=== PATIENT | female | born 1965 | race Caucasian/White ===

== ENCOUNTER 2019-03-21 08:36 | Day surgery (SDC) | payer BC ==
[~2019-03-21 08:36] MED LIST: Lactated Ringers 1,000 ML IV SCH; Midazolam 1 MG/ML 2 ML SDV ONE; Propofol 200 MG/20 ML SDV ONE
--- NOTE | 2019-03-21 09:16 | PCM.PREANE ---
Preanesthetic Assessment - Anesthesia/Transfusion/Family Hx Anesthesia History: Prior Anesthesia Without Reaction Family History of Anesthesia Reaction: No Transfusion History: No Prior Transfusion(s) - Review of Systems General: No Symptoms Pulmonary: No Symptoms Cardiovascular: No Symptoms Gastrointestinal: No Symptoms Neurological: No Symptoms Other: Reports: None - Physical Assessment NPO Status Date: 03/20/19 Vital Signs: Last Vital Signs Temp 96.6 F 03/21/19 09:12 Pulse 59 L 03/21/19 09:12 Resp 16 03/21/19 09:12 BP 135/80 03/21/19 09:12 Pulse Ox 100 03/21/19 09:12 Height: 5 ft 4 in Weight: 77.111 kg ASA Class: 2 Mental Status: Alert & Oriented x3 Airway Class: Mallampati = 2 Dentition: Reports: Normal Dentition ROM/Head Extension: Full Lungs: Clear to Auscultation, Normal Respiratory Effort Cardiovascular: Regular Rate, Regular Rhythm - Allergies Allergies/Adverse Reactions: Allergies Allergy/AdvReac Type Severity Reaction Status Date / Time No Known Allergies Allergy Verified 03/21/19 09:12 - Blood Blood Available: No - Anesthesia Plan Pre-Op Medication Ordered: None - Acknowledgements Anesthesia Type Planned: General Anesthesia Pt an Appropriate Candidate for the Planned Anesthesia: Yes Alternatives and Risks of Anesthesia Discussed w Pt/Guardian: Yes Pt/Guardian Understands and Agrees with Anesthesia Plan: Yes Additional Comments: PMH: hx breast cancer, s/p mastectomies PLAN: tiva PreAnesthesia Questionnaire HEENT History: Reports: Other (See Below) Other HEENT History: wears glasses, contacts Gastrointestinal History: Reports: GERD, Other (See Below) Other Gastrointestinal History: takes OTC medications for GERD Oncologic (Cancer) History: Reports: Breast Other Oncologic History: bilateral breast cancer - Past Surgical History Head Surgeries/Procedures: Reports: None HEENT Surgical History: Reports: Tonsillectomy GI Surgical History: Reports: Cholecystectomy Female Surgical History: Reports: Breast Implant, Mastectomy Oncologic Surgical History: Reports: Mastectomy Other Oncologic Surgeries/Procedures: bilateral - SUBSTANCE USE Smoking Status *Q: Former Smoker Tobacco Use Within Last Twelve Months: No Recreational Drug Use History: No - HOME MEDS Home Medications: Home Meds Doterra Vitality Multivitamin 1 pack PO DAILY 03/18/19 [History] Ibuprofen 2 tab PO Q4H PRN 03/18/19 [History] Tamoxifen Citrate 20 mg PO DAILY 03/18/19 [History] Valerian Root 500 mg PO BEDTIME PRN 03/18/19 [History] - CURRENT (IN HOUSE) MEDS Current Meds: Current Medications Lactated Ringer's (Ringers, Lactated) 1,000 mls @ 125 mls/hr IV ASDIRECTED BARRIE Last Admin: 03/21/19 09:12 Dose: 125 mls/hr Discontinued Medications Midazolam HCl (Versed 1 Mg/Ml) Confirm Administered Dose 2 mg .ROUTE .STK-MED ONE Stop: 03/21/19 07:54 Propofol (Diprivan 20 Ml) Confirm Administered Dose 400 mg .ROUTE .STK-MED ONE Stop: 03/21/19 07:54
[2019-03-21] MEDS ORDERED: Lactated Ringers 1,000 ML IV SCH (10:45)
--- NOTE | 2019-03-21 10:47 | PCM.OPNOTE ---
- General Post-Op/Procedure Note Date of Surgery/Procedure: 03/21/19 Operative Procedure(s): Colonoscopy Pre Op Diagnosis: Desire for colorectal cancer screening. Personal history of breast cancer. Post-Op Diagnosis: sigmoid diverticulosis Anesthesia Technique: MAC (ASA II) Primary Surgeon: Rickie Worrell Condition: Good Free Text/Narrative:: DICTATION 499695 CPT CODE 79224
--- NOTE | 2019-03-21 10:53 | PCM.POSTAN ---
POST ANESTHESIA ASSESSMENT - MENTAL STATUS Mental Status: Alert, Oriented - VITAL SIGNS Vital Signs: Last Vital Signs Temp 35.9 C 03/21/19 09:12 Pulse 63 03/21/19 10:49 Resp 16 03/21/19 10:49 BP 137/74 03/21/19 10:49 Pulse Ox 98 03/21/19 10:49 - RESPIRATORY Respiratory Status: Respiratory Rate WNL, Airway Patent, O2 Saturation Stable - CARDIOVASCULAR CV Status: Pulse Rate WNL, Blood Pressure Stable - GASTROINTESTINAL GI Status: No Symptoms - POST OP HYDRATION Hydration Status: Adequate & Stable - OBSERVATIONS Free Text/Narrative:: Patient comfortable and without any noted anesthesia complications.
--- NOTE | 2019-03-21 12:43 | PCM48HPAN ---
Post Anesthesia Note - EVALUATION WITHIN 48HRS OF ANESTHETIC Vital Signs in Normal Range: Yes Patient Participated in Evaluation: Yes Respiratory Function Stable: Yes Airway Patent: Yes Cardiovascular Function Stable: Yes Hydration Status Stable: Yes Pain Control Satisfactory: Yes Nausea and Vomiting Control Satisfactory: Yes Mental Status Recovered: Yes Vital Signs: Last Vital Signs Temp 96.6 F 03/21/19 09:12 Pulse 63 03/21/19 10:49 Resp 16 03/21/19 10:49 BP 137/74 03/21/19 10:49 Pulse Ox 98 03/21/19 10:49
--- NOTE | 2019-03-21 13:50 | OR ---
SURGEON: Rickie Worrell M.D. DATE OF PROCEDURE: 03/21/2019 OPERATION PERFORMED: Colonoscopy. ANESTHESIA: MAC. ASA CLASSIFICATION: II. PREOPERATIVE DIAGNOSIS: Desire for colorectal cancer screening. POSTOPERATIVE DIAGNOSIS: Sigmoid diverticulosis. DESCRIPTION OF PROCEDURE: The patient was taken to the endoscopy room and positioned on the endoscopy table in the left lateral decubitus position. Time-out was called for appropriate identification of the patient and procedure. Monitored anesthesia care was provided. The colonoscope was inserted into the rectum and advanced with minimal difficulty to the cecum. The cecum was identified by internal landmarks and external pressure. The colonoscope was retroflexed to visualize the ascending colon from below, then straightened and slowly withdrawn. The cecum, ascending colon, hepatic flexure, transverse colon, splenic flexure, and descending colon showed no tumors, polyps, diverticula, or angiodysplastic changes. Sigmoid colon demonstrates moderate diverticular disease. No stricture or spasm was noted. No acute inflammatory changes were noted. No polyps were encountered. The colonoscope was withdrawn to the rectum and retroflexed to visualize the anal orifice from above. No tumors, polyps, or acute hemorrhoidal changes were noted. The colonoscope was then straightened, the rectum aspirated, and the colonoscope removed. The patient tolerated the procedure well and was taken to recovery room in stable condition. DARIELA FIERRO /[id number]
== END 2019-03-21 11:30 | disposition home or self-care (01) ==
LOC: MW.SDS 08:36
PROVIDERS: ATTEND Surgery
DX: Z12.11 Encounter for screening for malignant neoplasm of colon (principal); K57.30 Diverticulosis of large intestine without perforation or abscess without bleeding; K21.9 Gastro-esophageal reflux disease without esophagitis; Z79.899 Other long term (current) drug therapy; Z87.891 Personal history of nicotine dependence
CPT/HCPCS: 36415; 45378; 84703; J2250; J2704; J7120; 00812

== ENCOUNTER 2019-03-23 09:46 | Emergency (ER) | payer BC ==
--- NOTE | 2019-03-23 10:15 | EDM.PDOC ---
ED HPI GENERAL MEDICAL PROBLEM - General Chief Complaint: Skin Complaint Stated Complaint: BLACK LINE GOING UP LEG Time Seen by Provider: 03/23/19 10:03 Source of Information: Reports: Patient History Limitations: Reports: No Limitations - History of Present Illness INITIAL COMMENTS - FREE TEXT/NARRATIVE: HISTORY AND PHYSICAL: History of present illness: Patient is a 53 year old female who presents to the ED today with a linear bruising / black area on the back of her right calf. Patient states it initially was just a small area a few days ago and is slowly worked its way up and is now up into the bottom of the back of her thigh. Patient states the area doesn't like a bruise and is only mildly uncomfortable if she presses on it. Patient states she has a history of breast cancer s/p bilateral mastectomy. Patient denies any other symptoms or concerns. Patient denies fever, chills, chest pain, shortness of breath, or cough. Denies headache, neck stiff ness, change in vision, syncope, or near syncope. Denies nausea, vomiting, abdominal pain, diarrhea, constipation, or dysuria. Has not noted any blood in urine or stool. Patient has been eating and drinking appropriately. Review of systems: As per history of present illness and below otherwise all systems reviewed and negative. Past medical history: As per history of present illness and as reviewed below otherwise noncontributory. Surgical history: As per history of present illness and as reviewed below otherwise noncontributory. Social history: See social history for further information Family history: As per history of present illness and as reviewed below otherwise noncontributory. Physical exam: General: Patient is alert, oriented, and in no acute distress. Patient sitting comfortably on exam table. HEENT: Atraumatic, normocephalic, pupils equal and reactive bilaterally, negative for conjunctival pallor or scleral icterus, mucous membranes moist, TMs normal bilaterally, throat clear, neck supple, nontender, trachea midline. No drooling or trismus noted. No meningeal signs. No hot potato voice noted. Lungs: Clear to auscultation, breath sounds equal bilaterally, chest nontender. Heart: S1S2, regular rate and rhythm without overt murmur Abdomen: Soft, nondistended, nontender. Negative for masses or hepatosplenomegaly. Negative for costovertebral tenderness. Pelvis: Stable nontender. Genitourinary: Deferred. Rectal: Deferred. Skin: Intact, warm, dry. No lesions or rashes noted. Extremities: Atraumatic, negative for cords or calf pain. Neurovascular unremarkable. There is a purple/bruising linear-jagged line in the distribution of a venous flow starting from the patient's distal posterior calf that and at the distal posterior thigh that mild pain with palpation. DP/PT are grossly intact with capillary refill less than 2 seconds of the right lower extremity. No obvious edema of the right lower extremity, and negative for erythema. Neuro: Awake, alert, oriented. Cranial nerves II through XII unremarkable. Cerebellum unremarkable. Motor and sensory unremarkable throughout. Exam nonfocal. Notes: Dr. Polk directly involved in patient care. Discussed the importance for follow-up with the primary care provider. Voices understanding and is agreeable to plan of care. Denies any further questions or concerns at this time. Diagnostics: CBC, CMP, UA, Lower extremity US doppler Therapeutics: None Prescription: None Impression: Bruising of lower extremity Plan: 1. You can alternate ibuprofen and Tylenol as directed for pain and discomfort. 2. Follow-up with the primary care provider as discussed. Return to the ED as needed and as discussed. Definitive disposition and diagnosis as appropriate pending reevaluation and review of above. Right Leg Pain Score (Numeric/FACES): 1 - Related Data Allergies Allergy/AdvReac Type Severity Reaction Status Date / Time No Known Allergies Allergy Verified 03/23/19 09:50 Home Meds: Home Meds Doterra Vitality Multivitamin 1 pack PO DAILY 03/18/19 [History] Ibuprofen 2 tab PO Q4H PRN 03/18/19 [History] Tamoxifen Citrate 20 mg PO DAILY 03/18/19 [History] Valerian Root 500 mg PO BEDTIME PRN 03/18/19 [History] Past Medical History HEENT History: Reports: Other (See Below) Other HEENT History: wears glasses, contacts Gastrointestinal History: Reports: GERD, Other (See Below) Other Gastrointestinal History: takes OTC medications for GERD Oncologic (Cancer) History: Reports: Breast Other Oncologic History: bilateral breast cancer - Infectious Disease History Infectious Disease History: Reports: Chicken Pox - Past Surgical History Head Surgeries/Procedures: Reports: None HEENT Surgical History: Reports: Tonsillectomy GI Surgical History: Reports: Cholecystectomy Female Surgical History: Reports: Breast Implant, Mastectomy Oncologic Surgical History: Reports: Mastectomy Other Oncologic Surgeries/Procedures: bilateral Social & Family History - Family History Family Medical History: Noncontributory - Tobacco Use Smoking Status *Q: Never Smoker Second Hand Smoke Exposure: No - Caffeine Use Caffeine Use: Reports: Coffee, Tea - Recreational Drug Use Recreational Drug Use: No ED ROS GENERAL - Review of Systems Review Of Systems: ROS reveals no pertinent complaints other than HPI. ED EXAM, SKIN/RASH Exam: See Below (See dictation) Course - Vital Signs Last Recorded V/S: Last Vital Signs Temp 35.9 C 03/23/19 09:51 Pulse 80 03/23/19 09:51 Resp 16 03/23/19 09:51 BP 176/90 H 03/23/19 09:51 Pulse Ox 99 03/23/19 09:51 - Orders/Labs/Meds Labs: Laboratory Tests 03/23/19 03/23/19 03/23/19 Range/Units 10:15 10:15 10:15 WBC 6.58 (4.0-11.0) K/uL RBC 4.62 (4.30-5.90) M/uL Hgb 14.3 (12.0-16.0) g/dL Hct 41.8 (36.0-46.0) % MCV 90.5 (80.0-98.0) fL MCH 31.0 (27.0-32.0) pg MCHC 34.2 (31.0-37.0) g/dL RDW Std Deviation 41.4 (28.0-62.0) fl RDW Coeff of Devin 13 (11.0-15.0) % Plt Count 269 (150-400) K/uL MPV 9.90 (7.40-12.00) fL Neut % (Auto) 60.1 (48.0-80.0) % Lymph % (Auto) 28.3 (16.0-40.0) % Barbour % (Auto) 9.7 (0.0-15.0) % Eos % (Auto) 1.4 (0.0-7.0) % Baso % (Auto) 0.5 (0.0-1.5) % Neut # (Auto) 4.0 (1.4-5.7) K/uL Lymph # (Auto) 1.9 (0.6-2.4) K/uL Barbour # (Auto) 0.6 (0.0-0.8) K/uL Eos # (Auto) 0.1 (0.0-0.7) K/uL Baso # (Auto) 0.0 (0.0-0.1) K/uL Nucleated RBC % 0.0 /100WBC Nucleated RBCs # 0 K/uL INR 1.04 Sodium (136-145) mmol/L Potassium (3.5-5.1) mmol/L Chloride (98-107) mmol/L Carbon Dioxide (21.0-32.0) mmol/L BUN (7.0-18.0) mg/dL Creatinine (0.6-1.0) mg/dL Est Cr Clr Drug Dosing mL/min Estimated GFR (MDRD) ml/min Glucose (74-106) mg/dL Calcium (8.5-10.1) mg/dL Total Bilirubin (0.2-1.0) mg/dL AST (15-37) IU/L ALT (14-63) IU/L Alkaline Phosphatase (46-116) U/L Total Protein (6.4-8.2) g/dL Albumin (3.4-5.0) g/dL Globulin (2.6-4.0) g/dL Albumin/Globulin Ratio (0.9-1.6) Urine Color YELLOW Urine Appearance CLEAR Urine pH 6.5 (5.0-8.0) Ur Specific Stuart <= 1.005 (1.001-1.035) Urine Protein NEGATIVE (NEGATIVE) mg/dL Urine Glucose (UA) NEGATIVE (NEGATIVE) mg/dL Urine Ketones NEGATIVE (NEGATIVE) mg/dL Urine Occult Blood NEGATIVE (NEGATIVE) Urine Nitrite NEGATIVE (NEGATIVE) Urine Bilirubin NEGATIVE (NEGATIVE) Urine Urobilinogen 0.2 (<2.0) EU/dL Ur Leukocyte Esterase NEGATIVE (NEGATIVE) 03/23/19 Range/Units 10:15 WBC (4.0-11.0) K/uL RBC (4.30-5.90) M/uL Hgb (12.0-16.0) g/dL Hct (36.0-46.0) % MCV (80.0-98.0) fL MCH (27.0-32.0) pg MCHC (31.0-37.0) g/dL RDW Std Deviation (28.0-62.0) fl RDW Coeff of Devin (11.0-15.0) % Plt Count (150-400) K/uL MPV (7.40-12.00) fL Neut % (Auto) (48.0-80.0) % Lymph % (Auto) (16.0-40.0) % Barbour % (Auto) (0.0-15.0) % Eos % (Auto) (0.0-7.0) % Baso % (Auto) (0.0-1.5) % Neut # (Auto) (1.4-5.7) K/uL Lymph # (Auto) (0.6-2.4) K/uL Barbour # (Auto) (0.0-0.8) K/uL Eos # (Auto) (0.0-0.7) K/uL Baso # (Auto) (0.0-0.1) K/uL Nucleated RBC % /100WBC Nucleated RBCs # K/uL INR Sodium 143 (136-145) mmol/L Potassium 4.5 (3.5-5.1) mmol/L Chloride 106 (98-107) mmol/L Carbon Dioxide 26.4 (21.0-32.0) mmol/L BUN 7 (7.0-18.0) mg/dL Creatinine 0.8 (0.6-1.0) mg/dL Est Cr Clr Drug Dosing 71.84 mL/min Estimated GFR (MDRD) > 60.0 ml/min Glucose 103 (74-106) mg/dL Calcium 9.1 (8.5-10.1) mg/dL Total Bilirubin 0.4 (0.2-1.0) mg/dL AST 13 L (15-37) IU/L ALT 21 (14-63) IU/L Alkaline Phosphatase 60 (46-116) U/L Total Protein 6.7 (6.4-8.2) g/dL Albumin 3.7 (3.4-5.0) g/dL Globulin 3.0 (2.6-4.0) g/dL Albumin/Globulin Ratio 1.2 (0.9-1.6) Urine Color Urine Appearance Urine pH (5.0-8.0) Ur Specific Stuart (1.001-1.035) Urine Protein (NEGATIVE) mg/dL Urine Glucose (UA) (NEGATIVE) mg/dL Urine Ketones (NEGATIVE) mg/dL Urine Occult Blood (NEGATIVE) Urine Nitrite (NEGATIVE) Urine Bilirubin (NEGATIVE) Urine Urobilinogen (<2.0) EU/dL Ur Leukocyte Esterase (NEGATIVE) Departure - Departure Time of Disposition: 12:02 Disposition: Home, Self-Care 01 Clinical Impression: Superficial bruising of lower leg Qualifiers: Encounter type: initial encounter Laterality: right Qualified Code(s): S80.11XA - Contusion of right lower leg, initial encounter - Discharge Information Instructions: Contusion, [id number] Referrals: PCP,Unknown [Primary Care Provider] - Forms: ED Department Discharge Additional Instructions: The following information is given to patients seen in the emergency department who are being discharged to home. This information is to outline your options for follow-up care. We provide all patients seen in our emergency department with a follow-up referral. The need for follow-up, as well as the timing and circumstances, are variable depending upon the specifics of your emergency department visit. If you don't have a primary care physician on staff, we will provide you with a referral. We always advise you to contact your personal physician following an emergency department visit to inform them of the circumstance of the visit and for follow-up with them and/or the need for any referrals to a consulting specialist. The emergency department will also refer you to a specialist when appropriate. This referral assures that you have the opportunity for follow-up care with a specialist. All of these measure are taken in an effort to provide you with optimal care, which includes your follow-up. Under all circumstances we always encourage you to contact your private physician who remains a resource for coordinating your care. When calling for follow-up care, please make the office aware that this follow-up is from your recent emergency room visit. If for any reason you are refused follow-up, please contact the [facility] Emergency Department at and asked to speak to the emergency department charge nurse. [facility] [address] [place] [id number] [facility] [address] [place] [id number] 1. You can alternate ibuprofen and Tylenol as directed for pain and discomfort. 2. Follow-up with the primary care provider as discussed. Return to the ED as needed and as discussed.
[2019-03-23 10:41] LABS: CHLORIDE,CL 106 mmol/L (98-107); SODIUM,NA 143 mmol/L (136-145)
--- NOTE | 2019-03-23 11:54 | US ---
INDICATION: Discoloration right posterior calf. COMPARISON: None. TECHNIQUE: A compression venous ultrasound exam was performed of the right lower extremity using alexander-scale imaging, color Doppler and spectral Doppler analysis. FINDINGS: Sonographic imaging of the right lower extremity demonstrates normal compressibility and color Doppler venous blood flow within the common femoral vein, deep femoral vein, and the proximal greater saphenous vein. Within the thigh, the femoral vein is patent and compressible. At a lower level, the popliteal and posterior tibial veins also show normal compressibility and color Doppler venous blood flow. Limited imaging of the contralateral groin demonstrates a normal spectral waveform and color Doppler venous blood flow within the left common femoral vein. IMPRESSION: Normal venous ultrasound exam. No evidence of deep vein thrombosis within the right lower extremity. Dictated by Jane Lozada MD @ Mar 23 2019 11:46AM Signed by Dr. Jane Lozada @ Mar 23 2019 11:53AM
== END 2019-03-23 12:03 | disposition home or self-care (01) ==
LOC: MW.ED 09:46
DX: S80.11XA Contusion of right lower leg, initial encounter (principal); K21.9 Gastro-esophageal reflux disease without esophagitis; Z79.899 Other long term (current) drug therapy; X58.XXXA Exposure to other specified factors, initial encounter
CPT/HCPCS: 36415; 80053; 81003; 85025; 85610; 93971-26-RT; 93971-RT; 99283; 99284-25